=== PATIENT | female | born 1945 | race Caucasian/White ===

== ENCOUNTER 2018-07-28 17:58 | Emergency (ER) | payer MEDICARE ==
[~2018-07-28] VITALS: Ht 162.6 cm; Wt 91.0 kg
[~2018-07-28 17:58] MED LIST: ALBU18HF INH; ALBU8.5H8 INH; CIPR500T87 PO; FENT1PAT77 TP; GABA-827 PO; ONDA8TAB12 PO; OXYC-307 PO; PREG150C PO
--- NOTE | 2018-07-28 18:22 | NUR ---
RN BACK FROM BREAK, REPORT FROM MARYELLEN CARLOS, PT IN XRAY
[2018-07-28] MEDS ORDERED: SODIUM CHLORIDE FLUSH 10ML SYR IVF ONE (19:00)
[2018-07-28] MEDS ORDERED: DEXAMETHASONE 4 MG/ML, 1ML IVPush ONE (19:00)
[2018-07-28] MEDS ORDERED: HYDROmorphone 2 MG/ML, 1ML IVPush PRN (19:00)
[2018-07-28] MEDS ORDERED: KETOROLAC 30 MG/1 ML IVPush ONE ×2 (19:00→19:30)
[2018-07-28] MEDS ORDERED: KETOROLAC 30 MG/1 ML ONE (19:03)
[2018-07-28] MEDS ORDERED: HYDROmorphone 1 MG/ML, 1ML VIAL ONE (19:03)
[2018-07-28] MEDS ORDERED: DEXAMETHASONE 4 MG/ML, 5ML ONE (19:03)
[2018-07-28 19:35] VITALS: BP 147/67
--- NOTE | 2018-07-28 19:35 | NUR ---
PT MEDICATED PER JUN, GIVEN ONLY DILAUDID 0.5 PT HAS NEVER HAD NARCOTICS. PT RESTING IN [facility]
== END 2018-07-28 20:13 | disposition home or self-care (01) ==
LOC: ED 19:23
DX: S39.012A Strain of muscle, fascia and tendon of lower back, initial encounter (principal); Z90.710 Acquired absence of both cervix and uterus; Z88.6 Allergy status to analgesic agent; Z88.1 Allergy status to other antibiotic agents; X50.1XXA Overexertion from prolonged static or awkward postures, initial encounter; Y93.89 Activity, other specified; Y92.89 Other specified places as the place of occurrence of the external cause; Y99.8 Other external cause status
CPT/HCPCS: 72110; 96374; 99283; J1885

== ENCOUNTER 2018-08-11 17:54 | Inpatient (IN) | payer MEDICARE ==
[~2018-08-11] VITALS: Ht 162.6 cm; Wt 99.4 kg
[2018-08-11] MEDS ORDERED: SODIUM CHLORIDE FLUSH 10ML SYR IVF ONE (18:30)
[2018-08-11] MEDS ORDERED: ACETAMINOPHEN 325 MG TABLET PO ONE (18:30)
[2018-08-11] MEDS ORDERED: SODIUM CHLORIDE 0.9% 1,000ML IVBOLUS ONE (18:30)
[2018-08-11] MEDS ORDERED: CEFTRIAXONE PMX 1GM/50ML 50 ML ONE (18:50)
[2018-08-11] MEDS ORDERED: ACETAMINOPHEN 325 MG TABLET ONE (18:51)
[2018-08-11] MEDS ORDERED: CEFTRIAXONE PMX 1GM/50ML 50 ML IV ONE (19:00)
--- NOTE | 2018-08-11 19:01 | NUR ---
REPORT FROM BREANNA WILLINGHAM. LAB CALLED, STATED THAT FLU SWAB TUBE WAS NOT TIGHTLY SEALED AND MEDIUM CAME OUT OF TUBE. UNABLE TO RUN LAB. FLU SWAB TO BE RE-OBTAINED.
--- NOTE | 2018-08-11 19:03 | NUR ---
REPORT GIVEN TO KANDIS CARLOS
[2018-08-11 19:06] LABS: INTERNATIONAL NORMALIZED RATIO 1.09 (0.93-1.1); PROTHROMBIN TIME 11.4 Seconds (9.6-11.5)
[2018-08-11 19:08] LABS: ALANINE AMINOTRANSFERASE 31 U/L (12-78); ANION GAP 5 mmol/L (5-15); CALCIUM 8.3 mg/dL (8.5-10.1); CHLORIDE 107 mmol/L (98-107); CREATININE 0.63 mg/dL (0.55-1.02)
[2018-08-11 19:10] LABS: ALKALINE PHOSPHATASE 145 U/L (45-117); BASOPHILS # (AUTO) 0.01 x10^3/uL (0-0.1); BASOPHILS % (AUTO) 0 % (0-1); BILIRUBIN,TOTAL 0.5 mg/dL (0.2-1.0); EOSINOPHILS # (AUTO) 0.09 x10^3/uL (0-0.4); EOSINOPHILS % (AUTO) 1 % (1-7); LYMPHOCYTES % (AUTO) 16 % (22-44); MD NO; MEAN CORPUSCULAR HEMOGLOBIN 27.4 pg (27.0-34.8); MEAN CORPUSCULAR HGB CONC 32.7 g/dL (32.4-35.8); MEAN CORPUSCULAR VOLUME 83.8 fL (80-100); MEAN PLATELET VOLUME 10.9 fL (7.4-10.4); MONOCYTES # (AUTO) 0.48 x10^3/uL (0.2-0.8); MONOCYTES % (AUTO) 6 % (2-9); NEUTROPHILS # (AUTO) 6.72 x10^3/uL (1.8-6.8); NEUTROPHILS % (AUTO) 77 % (42-75); PLATELET COUNT 138 x10^3/uL (130-400); RED BLOOD COUNT 4.27 x10^6/uL (3.82-5.3); RED CELL DISTRIBUTION WIDTH 19.6 % (9.6-15.2); TOTAL PROTEIN 6.4 g/dL (6.4-8.2)
[2018-08-11 19:13] LABS: MICROSCOPIC NOT IND
[2018-08-11 19:14] LABS: CULTURE INDICATED? NO
[2018-08-11] MEDS ORDERED: AZITHROMYCIN 500 MG in SODIUM CHLORIDE 0.9% 250 ML IV ONE (19:30)
[2018-08-11 19:43] LABS: RAPID INFLUENZA A Negative (Negative); RAPID INFLUENZA B Negative (Negative)
[2018-08-11] MEDS ORDERED: IBUPROFEN 600 MG TABLET PO ONE (20:00)
[2018-08-11 20:30] VITALS: BP 112/44
[2018-08-11] MEDS: HEPARIN 5,000 UNITS/ML, 1ML SQ SCH (20:54)
[2018-08-11] MEDS: BUDESONIDE 0.5 MG/2 ML INHA NPPB SCH (21:00)
[2018-08-11] MEDS ORDERED: ALBUTEROL SULFATE 2.5 MG/3 ML NPPB PRN (21:00)
[2018-08-11 22:48] VITALS: BP 109/57
[2018-08-11] MEDS: PREGABALIN 150 MG CAPSULE PO SCH (23:46)
[2018-08-11] MEDS: LACTATED RINGERS 1,000 ML IV SCH (23:46)
[2018-08-12 02:14] VITALS: BP 112/60
[2018-08-12 05:23] LABS: BASOPHILS # (AUTO) 0.01 x10^3/uL (0-0.1); BASOPHILS % (AUTO) 0 % (0-1); EOSINOPHILS # (AUTO) 0.12 x10^3/uL (0-0.4); EOSINOPHILS % (AUTO) 2 % (1-7); LYMPHOCYTES # (AUTO) 1.86 x10^3/uL (1-3.4); LYMPHOCYTES % (AUTO) 32 % (22-44); MD NO; MEAN CORPUSCULAR HEMOGLOBIN 27.2 pg (27.0-34.8); MEAN CORPUSCULAR HGB CONC 32.7 g/dL (32.4-35.8); MEAN CORPUSCULAR VOLUME 83.2 fL (80-100); MEAN PLATELET VOLUME 10.9 fL (7.4-10.4); MONOCYTES # (AUTO) 0.58 x10^3/uL (0.2-0.8); MONOCYTES % (AUTO) 10 % (2-9); NEUTROPHILS # (AUTO) 3.32 x10^3/uL (1.8-6.8); NEUTROPHILS % (AUTO) 56 % (42-75); PLATELET COUNT 109 x10^3/uL (130-400); RED BLOOD COUNT 3.96 x10^6/uL (3.82-5.3); RED CELL DISTRIBUTION WIDTH 19.3 % (9.6-15.2)
[2018-08-12 05:27] LABS: ANION GAP 4 mmol/L (5-15); CALCIUM 8.5 mg/dL (8.5-10.1); CHLORIDE 109 mmol/L (98-107)
[2018-08-12 05:30] LABS: CREATININE 0.42 mg/dL (0.55-1.02)
[2018-08-12] MEDS: OXYcodone/APAP 7.5/325MG TABLET PO PRN ×3 (05:35→20:15)
[2018-08-12] MEDS: HEPARIN 5,000 UNITS/ML, 1ML SQ SCH ×3 (05:35→23:38)
[2018-08-12 06:35] VITALS: BP 119/63
[2018-08-12] MEDS: BUDESONIDE 0.5 MG/2 ML INHA NPPB SCH ×2 (08:30→19:06)
[2018-08-12] MEDS: PREGABALIN 150 MG CAPSULE PO SCH ×3 (08:42→23:38)
[2018-08-12] MEDS: predniSONE 50MG TABLET PO SCH (08:42)
[2018-08-12] MEDS: LACTATED RINGERS 1,000 ML IV SCH (11:30)
[2018-08-12 13:48] VITALS: BP 162/71
[2018-08-12] MEDS ORDERED: CEFTRIAXONE PMX 1GM/50ML 50 ML IV SCH (17:00)
[2018-08-12] MEDS ORDERED: PREGABALIN 150 MG CAPSULE ONE (17:32)
[2018-08-12 18:36] VITALS: BP 145/74
[2018-08-12] MEDS: AZITHROMYCIN 250 MG TABLET PO SCH (20:15)
[2018-08-12] MEDS ORDERED: PREGABALIN 150 MG CAPSULE PO SCH (21:00)
[2018-08-13 00:05] VITALS: BP 147/73
[2018-08-13] MEDS: OXYcodone/APAP 7.5/325MG TABLET PO PRN ×2 (05:57→12:06)
[2018-08-13 07:45] VITALS: BP 162/74
[2018-08-13] MEDS: PREGABALIN 150 MG CAPSULE PO SCH (07:49)
[2018-08-13] MEDS: AZITHROMYCIN 250 MG TABLET PO SCH (07:49)
[2018-08-13] MEDS: HEPARIN 5,000 UNITS/ML, 1ML SQ SCH (07:49)
[2018-08-13] MEDS: predniSONE 50MG TABLET PO SCH (09:22)
[2018-08-13] MEDS: BUDESONIDE 0.5 MG/2 ML INHA NPPB SCH (10:42)
[2018-08-13] MEDS ORDERED: CEFD300C37 PO (11:48)
[2018-08-13] MEDS ORDERED: PRED50TA PO (11:48)
[2018-08-13] MEDS ORDERED: AZIT250T89 PO (11:48)
== END 2018-08-13 14:10 | disposition home or self-care (01) | DRG 871 ==
LOC: ED 19:30 → EDIP 20:08 → 4WST 20:11
PROVIDERS: ADMIT Family Medicine; ATTEND Family Medicine
DX: A41.9 Sepsis, unspecified organism (principal); J96.01 Acute respiratory failure with hypoxia; J18.1 Lobar pneumonia, unspecified organism; J45.901 Unspecified asthma with (acute) exacerbation; E11.9 Type 2 diabetes mellitus without complications; E66.9 Obesity, unspecified; G89.29 Other chronic pain; M54.9 Dorsalgia, unspecified; I10 Essential (primary) hypertension; R65.20 Severe sepsis without septic shock; Z87.891 Personal history of nicotine dependence; Z90.710 Acquired absence of both cervix and uterus; Z88.8 Allergy status to other drugs, medicaments and biological substances; Z88.2 Allergy status to sulfonamides; Z81.1 Family history of alcohol abuse and dependence; Z98.84 Bariatric surgery status; Z83.79 Family history of other diseases of the digestive system; Z79.899 Other long term (current) drug therapy; Z90.49 Acquired absence of other specified parts of digestive tract; Z68.37 Body mass index [BMI] 37.0-37.9, adult
CPT/HCPCS: 36415; 71045; 80048; 80053; 81003; 83605; 83735; 84145; 85025; 85610; 85730; 87040; 87400; 94640; 96365; G0378; J0456; J0696; J1644; J7626; J7030; J7050; J7120; J7512

== ENCOUNTER 2018-10-04 00:43 | Emergency (ER) | payer MEDICARE ==
[~2018-10-04] VITALS: Ht 165.1 cm; Wt 90.0 kg
[~2018-10-04 00:43] MED LIST changes: +AZIT250T89 PO; +CEFD300C37 PO; +PRED50TA PO
--- NOTE | 2018-10-04 01:38 | NUR ---
DIARRHEA, FEVER, VOMITING
[2018-10-04] MEDS ORDERED: ONDANSETRON 2MG/ML, 2ML IVPush ONE (02:00)
[2018-10-04] MEDS ORDERED: SODIUM CHLORIDE 0.9% 1,000ML IVBOLUS ONE (02:00)
[2018-10-04] MEDS ORDERED: MORPHINE SULFATE 4 MG/ML, 1ML IVPush PRN (02:00)
[2018-10-04] MEDS ORDERED: ONDANSETRON 2MG/ML, 2ML ONE (02:08)
[2018-10-04] MEDS ORDERED: MORPHINE SULFATE 4 MG/ML, 1ML ONE (02:08)
[2018-10-04 02:13] LABS: BASOPHILS # (AUTO) 0.03 x10^3/uL (0-0.1); BASOPHILS % (AUTO) 0 % (0-1); EOSINOPHILS # (AUTO) 0.16 x10^3/uL (0-0.4); EOSINOPHILS % (AUTO) 2 % (1-7); LYMPHOCYTES # (AUTO) 1.62 x10^3/uL (1-3.4); LYMPHOCYTES % (AUTO) 21 % (22-44); MD NO; MEAN CORPUSCULAR HGB CONC 31.6 g/dL (32.4-35.8); MEAN CORPUSCULAR VOLUME 82.4 fL (80-100); MEAN PLATELET VOLUME 10.9 fL (7.4-10.4); MONOCYTES # (AUTO) 0.69 x10^3/uL (0.2-0.8); MONOCYTES % (AUTO) 9 % (2-9); NEUTROPHILS # (AUTO) 5.06 x10^3/uL (1.8-6.8); NEUTROPHILS % (AUTO) 67 % (42-75); PLATELET COUNT 210 x10^3/uL (130-400); RED CELL DISTRIBUTION WIDTH 17.9 % (9.6-15.2)
--- NOTE | 2018-10-04 02:18 | NUR ---
PT TOLERATED PIV MEDS GIVEN
[2018-10-04 02:20] LABS: ALANINE AMINOTRANSFERASE 25 U/L (12-78); ALBUMIN 3.4 g/dL (3.4-5.0); ANION GAP 5 mmol/L (5-15); CALCIUM 8.9 mg/dL (8.5-10.1); CHLORIDE 104 mmol/L (98-107); CREATININE 0.55 mg/dL (0.55-1.02)
[2018-10-04 02:25] LABS: ALKALINE PHOSPHATASE 133 U/L (45-117); BILIRUBIN,TOTAL 0.7 mg/dL (0.2-1.0); TOTAL PROTEIN 7.1 g/dL (6.4-8.2); TROPONIN I < 0.015 ng/mL (0.000-0.045)
[2018-10-04] MEDS ORDERED: OMNIPAQUE 350 MG/ML, 100ML BOTTLE ONE (02:47)
[2018-10-04] MEDS ORDERED: POTASSIUM CHLORIDE 20 MEQ TAB.ER.PRT PO ONE (03:00)
--- NOTE | 2018-10-04 03:03 | NUR ---
NO VOMITING OR DIARRHEA DURING PTS STAY
[2018-10-04 03:14] LABS: MICROSCOPIC NOT IND
[2018-10-04 03:18] LABS: CULTURE INDICATED? NO
[2018-10-04] MEDS ORDERED: POTASSIUM CHLORIDE 20 MEQ TAB.ER.PRT ONE (03:25)
[2018-10-04 03:30] VITALS: BP 159/53
--- NOTE | 2018-10-04 03:31 | NUR ---
PT RESTING IN BED IN NAD
== END 2018-10-04 04:46 | disposition home or self-care (01) ==
LOC: ED 01:48
DX: E87.6 Hypokalemia (principal); R11.2 Nausea with vomiting, unspecified; R19.7 Diarrhea, unspecified; I10 Essential (primary) hypertension; J45.909 Unspecified asthma, uncomplicated; Z90.89 Acquired absence of other organs; Z90.710 Acquired absence of both cervix and uterus; Z87.891 Personal history of nicotine dependence
CPT/HCPCS: 36415; 71045; 74177; 80053; 81003; 83605; 83690; 84484; 85025; 93005; 96374; 96375; 99284; J2270; J2405; J7030; Q9967

== ENCOUNTER 2018-12-08 12:05 | Emergency (ER) | payer MEDICARE ==
[~2018-12-08] VITALS: Ht 162.6 cm; Wt 90.9 kg
[~2018-12-08 12:05] MED LIST changes: +TIZA2TAB2 PO
--- NOTE | 2018-12-08 13:20 | NUR ---
PT SENT HERE FROM [facility] FOR IV ABX. PT STATES SHE HAS "STOMACH CELLULITIS". PT DENEIS N/V. PT STATES HAVING ABD PAIN 01/19. SHE STATES "I CAN HANDLE IT WELL, I HAVE HAD IT A LONG TIME. PT WAS ON PO ABX FOR ONE WEEK, COMPLETED ONE DAY AGO.
[2018-12-08 13:29] LABS: ALANINE AMINOTRANSFERASE 15 U/L (12-78); ALBUMIN 3.1 g/dL (3.4-5.0); ANION GAP 10 mmol/L (5-15); CALCIUM 8.6 mg/dL (8.5-10.1); CHLORIDE 107 mmol/L (98-107); CREATININE 0.64 mg/dL (0.55-1.02)
[2018-12-08] MEDS ORDERED: SODIUM CHLORIDE FLUSH 10ML SYR IVF ONE (13:30)
[2018-12-08 13:31] LABS: ALKALINE PHOSPHATASE 117 U/L (45-117); BILIRUBIN,TOTAL 0.6 mg/dL (0.2-1.0)
--- NOTE | 2018-12-08 14:18 | NUR ---
Ana calderon in ED - 12/08/18 at 1432 by GULSHAN Patient/Caregiver given discharge instructions and they have confirmed that they understand the instructions. Patient CARRIED OUT BY PARENT.
[2018-12-08] MEDS ORDERED: OMNIPAQUE 350 MG/ML, 100ML BOTTLE ONE (14:30)
--- NOTE | 2018-12-08 14:32 | NUR ---
CT CALLED, PT IS NEXT TO BE TAKEN
[2018-12-08 14:53] LABS: MICROSCOPIC INDICATED
[2018-12-08 15:06] LABS: MD YES; MEAN CORPUSCULAR HEMOGLOBIN 26.7 pg (27.0-34.8); MEAN CORPUSCULAR HGB CONC 31.9 g/dL (32.4-35.8); MEAN CORPUSCULAR VOLUME 83.9 fL (80-100); MEAN PLATELET VOLUME 11.9 fL (7.4-10.4); PLATELET COUNT 247 x10^3/uL (130-400); RED BLOOD COUNT 4.91 x10^6/uL (3.82-5.3); RED CELL DISTRIBUTION WIDTH 20.5 % (9.6-15.2)
[2018-12-08 15:09] LABS: EOS#(MANUAL) 0.09 x10^3/uL (0.0-0.4); EOS% (MANUAL) 1 % (1-7); LYMPH#(MANUAL) 1.38 x10^3/uL (1-3.4); LYMPHS% (MANUAL) 15 % (22-44); MONOS#(MANUAL) 0.55 x10^3/uL (0.3-2.7); MONOS% (MANUAL) 6 % (2-9); SEG#(MANUAL) 7.18 x10^3/uL (1.8-6.8); SEGS% (MANUAL) 78 % (42-75)
[2018-12-08 15:10] LABS: <PLATELET ESTIMATE> ADEQUATE; <RBC MORPHOLOGY> NORMAL; GIANT PLATELETS 1+; LARGE PLATELETS 1+
--- NOTE | 2018-12-08 15:10 | NUR ---
PT BACK FROM CT REQUESTING PAIN MEDICATION, WILL UPDATE MD
[2018-12-08 15:24] LABS: CULTURE INDICATED? YES
[2018-12-08] MEDS ORDERED: OXYcodone/APAP 10/325MG TABLET PO ONE (15:30)
--- NOTE | 2018-12-08 16:41 | NUR ---
PT UPDATED ON POC BY ZULMA, PT TO DC HOME
[2018-12-08] MEDS ORDERED: OXYcodone/APAP 10/325MG TABLET ONE (16:50)
[2018-12-08 16:53] VITALS: BP 142/60
--- NOTE | 2018-12-08 16:55 | NUR ---
Patient/Caregiver given discharge instructions and they have confirmed that they understand the instructions. PATIENT ESCORTED TO D/C DESK IN WHEELCHAIR
[2018-12-29] MEDS ORDERED: APIX5TAB PO (14:41)
== END 2018-12-08 18:03 | disposition home or self-care (01) ==
LOC: ED 17:04
DX: L03.311 Cellulitis of abdominal wall (principal); I10 Essential (primary) hypertension; J45.909 Unspecified asthma, uncomplicated; Z90.710 Acquired absence of both cervix and uterus
CPT/HCPCS: 36415; 74177; 80053; 81001; 85025; 87077; 87086; 87186; 99284; Q9967